=== PATIENT | female | born 1940 | race Caucasian/White ===

== ENCOUNTER 2017-12-16 05:47 | Inpatient (IN) ==
[2017-12-06 15:04] LABS: Basophils # 0.1 10*3/uL (0.0-0.2); Basophils % 0.7 % (0.0-0.8); Eosinophils # 0.3 10*3/uL (0.0-0.87); Eosinophils % 3.4 % (0.00-10.9); Hematocrit 36.7 VOL% (35.7-47.0); Hemoglobin 12.4 GM/DL (12.0-16.0); Immature Granulocytes % 0.7 %; Immature Granulocytes Absolute 0.05 #; Lymphocytes # 1.8 10*3/uL (1.4-4.0); Lymphocytes % 23.7 % (21.3-54.2); Mean Corpuscular HGB Conc 33.8 GM/DL (32-36); Mean Corpuscular Hemoglobin 34 PG (27-34); Mean Corpuscular Volume 100.3 FL (87-102); Mean Platelet Volume 9.8 FL (9.6-12.0); Monocytes # 0.7 10*3/uL (0.11-0.8); Monocytes % 9.2 % (1.7-12.7); Neutrophils # 4.8 10*3/uL (1.4-7.4); Neutrophils % 62.3 % (38.7-73.9); Platelet Count 218 T/CUMM (130-400); Red Blood Count 3.66 MC/CUMM (3.8-5.5); Red Cell Distribution Width 13.9 % (9.3-17.3); White Blood Count 7.7 T/CUMM (4-12)
[2017-12-06 15:23] LABS: PT Patient Result 10.3 SECS; Partial Thromboplastin Time 24.7 SECS (0-40)
[2017-12-06 15:32] LABS: Apearance,Urine CLEAR (Clear); Bilirubin,Urine Negative (Negative); Blood, Urine Negative (Negative); Glucose,Urine (UA) Negative (Negative); Ketones,Urine Negative (Negative); Nitrite,Urine Negative (Negative); Protein,Urine Negative; RBC,Urine 1 /HPF (0-4); Squamous Epithelial Cell,Urine Occasional /HPF (0-10); Urine Color Yellow (Yellow); Urine Specific Gravity 1.004 (1.001-1.035); Urine Urobilinogen < 2.0 EU/DL (0.2-1.0)
[2017-12-06 15:45] LABS: Albumin 3.9 G/DL (3.4-5.0); Bilirubin,Total 0.7 MG/DL (0.2-1.0); Calcium 9.5 MG/DL (8.5-10.1); Osmolality,Calculated 278.7 MOS/KG (273-304); Potassium 5.1 MMOL/L (3.5-5.1); Total Protein 7.2 G/DL (6.4-8.3)
[2017-12-16] MEDS ORDERED: ceFAZolin 1,000 MG VIAL ONE (05:54)
[2017-12-16] MEDS ORDERED: VANCOMYCIN 1,000 MG VIAL ONE (05:54)
[2017-12-16] MEDS ORDERED: DIAZEPAM 5 MG TABLET PO ONE (06:30)
[2017-12-16] MEDS ORDERED: SCOPOLAMINE 1.5 MG PATCH TRANSDERM ONE ×2 (06:30→07:39)
[2017-12-16] MEDS ORDERED: VANCOMYCIN INJ 1,000 MG in SODIUM CHLORIDE 0.9% 250 ML IV ONE (06:30)
[2017-12-16] MEDS ORDERED: FAMOTIDINE 20 MG TABLET PO ONE (06:30)
[2017-12-16] MEDS ORDERED: LACTATED RINGERS 1,000 ML IV SCH (07:30)
[2017-12-16] MEDS ORDERED: FAMOTIDINE 20 MG TABLET ONE (07:39)
[2017-12-16] MEDS ORDERED: DIAZEPAM 5 MG TABLET ONE (07:39)
[2017-12-16] MEDS ORDERED: BACITRACIN OINT 0.9 GM PACK TOP ONE (10:31)
[2017-12-16] MEDS ORDERED: BUPIVACAINE SPINAL 0.75% 2 ML AMP SPINAL ONE (10:38)
[2017-12-16] MEDS ORDERED: ONDANSETRON 4 MG/2 ML VIAL IV PRN ×2 (11:29→13:37)
[2017-12-16] MEDS ORDERED: diphenhydrAMINE CAP 25 MG CAPSULE PO PRN (11:29)
[2017-12-16] MEDS ORDERED: MORPHINE 4 MG/1 ML VIAL IV PRN ×2 (11:29)
[2017-12-16] MEDS ORDERED: oxyCODONE IR 5 MG TABLET PO PRN ×2 (11:29)
[2017-12-16] MEDS ORDERED: ZALEPLON 5 MG CAPSULE PO PRN (11:29)
[2017-12-16] MEDS ORDERED: TRANEXAMIC ACID 1,000 MG/10 ML VIAL IV ONE (11:49)
[2017-12-16 13:22] LABS: Apearance,Urine CLEAR (Clear); Bilirubin,Urine Negative (Negative); Blood, Urine Small mg/dL (Negative); Glucose,Urine (UA) Negative (Negative); Ketones,Urine Negative (Negative); Nitrite,Urine Negative (Negative); Protein,Urine Negative; RBC,Urine 1 /HPF (0-4); Urine Color Straw (Yellow); Urine Specific Gravity 1.009 (1.001-1.035); Urine Urobilinogen < 2.0 EU/DL (0.2-1.0); WBC,Urine <1 /HPF (0-6)
[2017-12-16] MEDS ORDERED: ONDANSETRON 4 MG/2 ML VIAL ONE (13:22)
[2017-12-16] MEDS ORDERED: HYDROmorphone 2 MG/1 ML VIAL ONE (13:22)
[2017-12-16] MEDS: HYDROmorphone 2 MG/1 ML VIAL IV PRN ×2 (13:22→13:30)
[2017-12-16] MEDS ORDERED: PROPOFOL 200 MG/20 ML VIAL IV ONE (13:27)
[2017-12-16] MEDS ORDERED: ACETAMINOPHEN 1,000 MG/100 ML VIAL IV ONE (13:28)
[2017-12-16] MEDS ORDERED: fentaNYL 100 MCG/2 ML VIAL ONE (13:28)
[2017-12-16] MEDS ORDERED: SODIUM CHLORIDE 0.9% 250 ML IV ONE (13:28)
[2017-12-16] MEDS: KETOROLAC 15 MG/1 ML VIAL IV SCH ×3 (16:19→23:45)
[2017-12-16] MEDS: ceFAZolin 2,000 MG in PREMIX 1 EACH IV SCH ×2 (18:27→23:49)
[2017-12-16] MEDS: ACETAMINOPHEN 500 MG TABLET PO SCH ×2 (18:27→21:32)
[2017-12-16] MEDS ORDERED: amLODIPine 5 MG TABLET PO SCH (21:00)
[2017-12-16] MEDS: ALLOPURINOL 300 MG TABLET PO SCH (21:32)
[2017-12-16] MEDS: ATENOLOL 25 MG TABLET PO SCH (21:32)
[2017-12-16] MEDS: MAGNESIUM OXIDE 400 MG TABLET PO SCH (21:32)
[2017-12-16] MEDS: DOCUSATE SODIUM 100 MG CAPSULE PO SCH (21:32)
[2017-12-16] MEDS: LISINOPRIL 10 MG TABLET PO SCH (21:32)
[2017-12-17] MEDS: ACETAMINOPHEN 500 MG TABLET PO SCH ×2 (05:00→16:38)
[2017-12-17] MEDS: KETOROLAC 15 MG/1 ML VIAL IV SCH (05:01)
[2017-12-17] MEDS: FONDAPARINUX 2.5 MG/0.5 ML SYRINGE SUBCUT SCH (05:04)
[2017-12-17 06:14] LABS: Basophils % 0.5 % (0.0-0.8); Eosinophils # 0.2 10*3/uL (0.0-0.87); Eosinophils % 2.1 % (0.00-10.9); Hematocrit 29.5 VOL% (35.7-47.0); Hemoglobin 9.3 GM/DL (12.0-16.0); Immature Granulocytes % 0.8 %; Immature Granulocytes Absolute 0.06 #; Lymphocytes # 1.2 10*3/uL (1.4-4.0); Lymphocytes % 16.4 % (21.3-54.2); Mean Corpuscular HGB Conc 31.5 GM/DL (32-36); Mean Corpuscular Hemoglobin 33 PG (27-34); Mean Corpuscular Volume 103.9 FL (87-102); Mean Platelet Volume 10.4 FL (9.6-12.0); Monocytes # 0.7 10*3/uL (0.11-0.8); Monocytes % 9.2 % (1.7-12.7); Neutrophils # 5.2 10*3/uL (1.4-7.4); Platelet Count 170 T/CUMM (130-400); Red Blood Count 2.84 MC/CUMM (3.8-5.5); Red Cell Distribution Width 14.2 % (9.3-17.3); White Blood Count 7.3 T/CUMM (4-12)
[2017-12-17 06:42] LABS: Calcium 8.5 MG/DL (8.5-10.1); Osmolality,Calculated 279.4 MOS/KG (273-304); Potassium 4.4 MMOL/L (3.5-5.1)
[2017-12-17 07:00] LABS: Risk Ratio 3.02
[2017-12-17] MEDS ORDERED: PRESERVISION LUTEIN PO SCH (09:00)
[2017-12-17] MEDS: MULTIVITAMIN (CENTRUM) TABLET PO SCH (09:51)
[2017-12-17] MEDS: RALOXIFENE 60 MG TABLET PO SCH (09:51)
[2017-12-17] MEDS: COLCHICINE 0.6 MG TABLET PO SCH (09:51)
[2017-12-17] MEDS: SIMVASTATIN 40 MG TABLET PO SCH (09:51)
[2017-12-17] MEDS: ATENOLOL 25 MG TABLET PO SCH ×2 (09:51→21:20)
[2017-12-17] MEDS: CHOLECALCIFEROL 1,000 UNIT TABLET PO SCH (09:51)
[2017-12-17] MEDS: DOCUSATE SODIUM 100 MG CAPSULE PO SCH ×2 (09:51→21:20)
[2017-12-17] MEDS: LISINOPRIL 10 MG TABLET PO SCH ×2 (09:51→21:20)
[2017-12-17] MEDS: hydroCHLOROthiazide 12.5 MG CAPSULE PO SCH (09:51)
[2017-12-17] MEDS: LACTATED RINGERS 1,000 ML IV SCH (12:11)
[2017-12-17] MEDS: CELECOXIB 200 MG CAPSULE PO SCH (16:58)
[2017-12-17] MEDS: amLODIPine 10 MG TABLET PO SCH (21:20)
[2017-12-17] MEDS: ALLOPURINOL 300 MG TABLET PO SCH (21:20)
[2017-12-17] MEDS: MAGNESIUM OXIDE 400 MG TABLET PO SCH (21:20)
[2017-12-18] MEDS: FONDAPARINUX 2.5 MG/0.5 ML SYRINGE SUBCUT SCH (05:09)
[2017-12-18 06:10] LABS: Basophils % 0.3 % (0.0-0.8); Eosinophils # 0.2 10*3/uL (0.0-0.87); Eosinophils % 2.1 % (0.00-10.9); Hematocrit 27.1 VOL% (35.7-47.0); Hemoglobin 8.9 GM/DL (12.0-16.0); Immature Granulocytes % 0.8 %; Immature Granulocytes Absolute 0.06 #; Lymphocytes # 1.4 10*3/uL (1.4-4.0); Lymphocytes % 17.3 % (21.3-54.2); Mean Corpuscular HGB Conc 32.8 GM/DL (32-36); Mean Corpuscular Hemoglobin 34 PG (27-34); Mean Corpuscular Volume 104.2 FL (87-102); Mean Platelet Volume 10.7 FL (9.6-12.0); Monocytes # 0.9 10*3/uL (0.11-0.8); Monocytes % 11.1 % (1.7-12.7); Neutrophils # 5.5 10*3/uL (1.4-7.4); Neutrophils % 68.4 % (38.7-73.9); Platelet Count 167 T/CUMM (130-400)
[2017-12-18 06:35] LABS: Calcium 8.2 MG/DL (8.5-10.1); Osmolality,Calculated 280.5 MOS/KG (273-304); Potassium 4.1 MMOL/L (3.5-5.1)
[2017-12-18] MEDS ORDERED: BENZOCAINE/MENTHOL LOZENGE 18/BOX PO PRN (10:28)
[2017-12-18] MEDS: CHOLECALCIFEROL 1,000 UNIT TABLET PO SCH (10:30)
[2017-12-18] MEDS: hydroCHLOROthiazide 12.5 MG CAPSULE PO SCH (10:31)
[2017-12-18] MEDS: COLCHICINE 0.6 MG TABLET PO SCH (10:31)
[2017-12-18] MEDS: CELECOXIB 200 MG CAPSULE PO SCH (10:31)
[2017-12-18] MEDS: RALOXIFENE 60 MG TABLET PO SCH (10:31)
[2017-12-18] MEDS: ATENOLOL 25 MG TABLET PO SCH ×2 (10:32→20:41)
[2017-12-18] MEDS: MULTIVITAMIN (CENTRUM) TABLET PO SCH (10:32)
[2017-12-18] MEDS: LISINOPRIL 10 MG TABLET PO SCH ×2 (10:32→20:41)
[2017-12-18] MEDS: DOCUSATE SODIUM 100 MG CAPSULE PO SCH ×2 (10:33→20:34)
[2017-12-18] MEDS: SIMVASTATIN 40 MG TABLET PO SCH (10:33)
[2017-12-18] MEDS: MAGNESIUM HYDROXIDE SUSP 30 ML UDCUP PO PRN ×2 (10:33→15:33)
[2017-12-18] MEDS: MAGNESIUM OXIDE 400 MG TABLET PO SCH (20:34)
[2017-12-18] MEDS: amLODIPine 10 MG TABLET PO SCH (20:41)
[2017-12-18] MEDS: ALLOPURINOL 300 MG TABLET PO SCH (20:41)
[2017-12-19] MEDS: FONDAPARINUX 2.5 MG/0.5 ML SYRINGE SUBCUT SCH (05:47)
[2017-12-19 06:38] LABS: Basophils % 0.3 % (0.0-0.8); Eosinophils # 0.2 10*3/uL (0.0-0.87); Hematocrit 25.3 VOL% (35.7-47.0); Hemoglobin 8.2 GM/DL (12.0-16.0); Immature Granulocytes % 0.9 %; Immature Granulocytes Absolute 0.06 #; Lymphocytes # 1.2 10*3/uL (1.4-4.0); Mean Corpuscular HGB Conc 32.4 GM/DL (32-36); Mean Corpuscular Hemoglobin 34 PG (27-34); Mean Corpuscular Volume 104.5 FL (87-102); Mean Platelet Volume 10.4 FL (9.6-12.0); Monocytes # 0.8 10*3/uL (0.11-0.8); Monocytes % 11.9 % (1.7-12.7); Neutrophils # 4.2 10*3/uL (1.4-7.4); Neutrophils % 64.9 % (38.7-73.9); Platelet Count 151 T/CUMM (130-400); Red Blood Count 2.42 MC/CUMM (3.8-5.5); Red Cell Distribution Width 13.9 % (9.3-17.3); White Blood Count 6.4 T/CUMM (4-12)
[2017-12-19 06:58] LABS: Calcium 8.3 MG/DL (8.5-10.1); Osmolality,Calculated 284.3 MOS/KG (273-304); Potassium 4.1 MMOL/L (3.5-5.1)
[2017-12-19] MEDS: SIMVASTATIN 40 MG TABLET PO SCH (09:48)
[2017-12-19] MEDS: LISINOPRIL 10 MG TABLET PO SCH ×2 (09:48→21:25)
[2017-12-19] MEDS: ATENOLOL 25 MG TABLET PO SCH ×2 (09:50→21:25)
[2017-12-19] MEDS: DOCUSATE SODIUM 100 MG CAPSULE PO SCH ×2 (09:51→21:26)
[2017-12-19] MEDS: RALOXIFENE 60 MG TABLET PO SCH (09:51)
[2017-12-19] MEDS: COLCHICINE 0.6 MG TABLET PO SCH (09:52)
[2017-12-19] MEDS: MULTIVITAMIN (CENTRUM) TABLET PO SCH (09:52)
[2017-12-19] MEDS: CELECOXIB 200 MG CAPSULE PO SCH (09:52)
[2017-12-19] MEDS: CHOLECALCIFEROL 1,000 UNIT TABLET PO SCH (09:52)
[2017-12-19] MEDS: hydroCHLOROthiazide 12.5 MG CAPSULE PO SCH (09:52)
[2017-12-19] MEDS: MULTIVITAMIN (OCUVITE) TABLET PO SCH (09:53)
[2017-12-19] MEDS: ALLOPURINOL 300 MG TABLET PO SCH (21:26)
[2017-12-19] MEDS: amLODIPine 10 MG TABLET PO SCH (21:26)
[2017-12-19] MEDS: MAGNESIUM OXIDE 400 MG TABLET PO SCH (21:26)
[2017-12-20] MEDS: FONDAPARINUX 2.5 MG/0.5 ML SYRINGE SUBCUT SCH (05:50)
[2017-12-20 06:02] LABS: Basophils % 0.4 % (0.0-0.8); Eosinophils # 0.2 10*3/uL (0.0-0.87); Eosinophils % 2.6 % (0.00-10.9); Hematocrit 25.7 VOL% (35.7-47.0); Hemoglobin 8.3 GM/DL (12.0-16.0); Immature Granulocytes Absolute 0.07 #; Lymphocytes % 13.8 % (21.3-54.2); Mean Corpuscular HGB Conc 32.3 GM/DL (32-36); Mean Corpuscular Hemoglobin 34 PG (27-34); Mean Corpuscular Volume 103.6 FL (87-102); Mean Platelet Volume 10.3 FL (9.6-12.0); Monocytes # 0.9 10*3/uL (0.11-0.8); Neutrophils # 4.8 10*3/uL (1.4-7.4); Neutrophils % 69.2 % (38.7-73.9); Platelet Count 189 T/CUMM (130-400); Red Blood Count 2.48 MC/CUMM (3.8-5.5); Red Cell Distribution Width 13.8 % (9.3-17.3); White Blood Count 6.9 T/CUMM (4-12)
[2017-12-20 06:16] LABS: Calcium 8.1 MG/DL (8.5-10.1); Osmolality,Calculated 278.5 MOS/KG (273-304); Potassium 4.2 MMOL/L (3.5-5.1)
[2017-12-20 07:51] VITALS: BP 150/70
[2017-12-20] MEDS: ATENOLOL 25 MG TABLET PO SCH (08:35)
[2017-12-20] MEDS: COLCHICINE 0.6 MG TABLET PO SCH (08:35)
[2017-12-20] MEDS: RALOXIFENE 60 MG TABLET PO SCH (08:35)
[2017-12-20] MEDS: hydroCHLOROthiazide 12.5 MG CAPSULE PO SCH (08:35)
[2017-12-20] MEDS: MULTIVITAMIN (CENTRUM) TABLET PO SCH (08:35)
[2017-12-20] MEDS: MULTIVITAMIN (OCUVITE) TABLET PO SCH (08:35)
[2017-12-20] MEDS: CHOLECALCIFEROL 1,000 UNIT TABLET PO SCH (08:35)
[2017-12-20] MEDS: SIMVASTATIN 40 MG TABLET PO SCH (08:35)
[2017-12-20] MEDS: CELECOXIB 200 MG CAPSULE PO SCH (08:35)
[2017-12-20] MEDS: LISINOPRIL 10 MG TABLET PO SCH (08:35)
[2017-12-20] MEDS: DOCUSATE SODIUM 100 MG CAPSULE PO SCH (08:35)
[2017-12-20] MEDS ORDERED: BISACODYL 10 MG SUPP RECTAL ONE (08:50)
== END 2017-12-20 11:10 | disposition home health service (06) | DRG 470 ==
LOC: N.OR 05:47 → N.SDSINP 05:48 → N.3E 11:29
PROVIDERS: ADMIT Orthopaedic Surgery; ATTEND Orthopaedic Surgery

== ENCOUNTER 2020-06-04 11:08 | Observation (INO) ==
[2020-06-04] MEDS ORDERED: ASPIRIN CHEW 81 MG TABLET PO STA (11:36)
[2020-06-04] MEDS ORDERED: NITROGLYCERIN SL 0.4 MG TABLET SL PRN (11:36)
[2020-06-04 11:53] LABS: Basophils # 0.1 10*3/uL (0.0-0.2); Basophils % 0.5 % (0.0-0.8); Eosinophils # 0.1 10*3/uL (0.0-0.87); Eosinophils % 0.5 % (0.00-10.9); Hematocrit 35.2 VOL% (35.7-47.0); Hemoglobin 11.8 GM/DL (12.0-16.0); Immature Granulocytes % 0.6 %; Immature Granulocytes Absolute 0.08 #; Lymphocytes # 0.9 10*3/uL (1.4-4.0); Lymphocytes % 6.7 % (21.3-54.2); Mean Corpuscular HGB Conc 33.5 GM/DL (32-36); Mean Corpuscular Volume 100.3 FL (87-102); Mean Platelet Volume 9.4 FL (9.6-12.0); Monocytes % 9.1 % (1.7-12.7); Neutrophils % 82.6 % (38.7-73.9); Platelet Count 203 T/CUMM (130-400); Red Blood Count 3.51 MC/CUMM (3.8-5.5)
[2020-06-04 12:08] LABS: PT Patient Result 10.5 SECS (9.8-11.9); Partial Thromboplastin Time 26.8 SECS (23.9-33.8)
[2020-06-04 12:14] LABS: Albumin 3.7 G/DL (3.4-5.0); Calcium 9.1 MG/DL (8.5-10.1); Total Protein 6.8 G/DL (6.4-8.3)
[2020-06-04] MEDS ORDERED: ACETAMINOPHEN 325 MG TABLET PO PRN (14:09)
[2020-06-04] MEDS ORDERED: GLUCAGON 1 MG VIAL IM PRN (14:09)
[2020-06-04] MEDS ORDERED: DEXTROSE 50% 25 GM/50 ML VIAL IV PRN (14:09)
[2020-06-04] MEDS ORDERED: ONDANSETRON 4 MG/2 ML VIAL IV PRN (14:09)
[2020-06-04] MEDS ORDERED: SODIUM CHLORIDE 0.9% 1,000 ML IV SCH (14:30)
[2020-06-04 14:44] LABS: Risk Ratio 2.57; Thyroid Stimulating Hormone 2.07 uIU/ml (0.358-3.74); VLDL CHOLESTEROL 23.8 MG/DL
[2020-06-04] MEDS ORDERED: INFLUENZA VIRUS VACCINE 0.5 ML SYRINGE IM ONE (15:34)
[2020-06-04] MEDS: ENOXAPARIN 40 MG/0.4 ML SYRINGE SUBCUT SCH (16:13)
[2020-06-04] MEDS: hydrALAZINE 20 MG/1 ML VIAL IV PRN (16:13)
[2020-06-04 18:14] LABS: Bilirubin,Urine Negative (Negative); Blood, Urine Moderate mg/dL (Negative); Glucose,Urine (UA) Negative (Negative); Ketones,Urine Negative (Negative); Nitrite,Urine Negative (Negative); Protein,Urine 100 MG/DL; RBC,Urine 8 /HPF (0-4); Squamous Epithelial Cell,Urine Occasional /HPF (0-10); Urine Appearance CLEAR (Clear); Urine Color Straw (Yellow); Urine Specific Gravity 1.005 (1.001-1.035); Urine Urobilinogen < 2.0 EU/DL (0.2-1.0); WBC,Urine <1 /HPF (0-6)
[2020-06-04] MEDS: atenoloL 25 MG TABLET PO SCH (21:06)
[2020-06-04] MEDS: MAGNESIUM GLUCONATE 500 MG TABLET PO SCH (21:06)
[2020-06-04] MEDS: allopurinoL 300 MG TABLET PO SCH (21:06)
[2020-06-04] MEDS: amLODIPine 5 MG TABLET PO SCH (21:07)
[2020-06-05 06:08] LABS: Basophils % 0.3 % (0.0-0.8); Eosinophils # 0.2 10*3/uL (0.0-0.87); Eosinophils % 2.1 % (0.00-10.9); Hematocrit 29.9 VOL% (35.7-47.0); Hemoglobin 10.1 GM/DL (12.0-16.0); Immature Granulocytes % 0.7 %; Immature Granulocytes Absolute 0.05 #; Lymphocytes # 1.2 10*3/uL (1.4-4.0); Lymphocytes % 17.3 % (21.3-54.2); Mean Corpuscular HGB Conc 33.8 GM/DL (32-36); Mean Platelet Volume 10.1 FL (9.6-12.0); Monocytes % 12.6 % (1.7-12.7); Platelet Count 164 T/CUMM (130-400); Red Blood Count 2.96 MC/CUMM (3.8-5.5); Red Cell Distribution Width 14.1 % (9.3-17.3)
[2020-06-05 06:30] LABS: Calcium 8.9 MG/DL (8.5-10.1); Osmolality,Calculated 285.4 MOS/KG (273-304)
[2020-06-05] MEDS ORDERED: FUROSEMIDE 20 MG/2 ML VIAL IV ONE (07:54)
[2020-06-05] MEDS: SIMVASTATIN 40 MG TABLET PO SCH (09:10)
[2020-06-05] MEDS: PANTOPRAZOLE 40 MG TABLET PO SCH (09:10)
[2020-06-05] MEDS: RALOXIFENE 60 MG TABLET PO SCH (09:10)
[2020-06-05] MEDS: DOCUSATE SODIUM 100 MG CAPSULE PO PRN ×2 (09:10→21:08)
[2020-06-05] MEDS: CHOLECALCIFEROL 1,000 UNIT TABLET PO SCH (09:10)
[2020-06-05] MEDS: atenoloL 25 MG TABLET PO SCH ×2 (09:10→20:48)
[2020-06-05] MEDS: MULTIVITAMIN (CENTRUM) TABLET PO SCH (09:10)
[2020-06-05] MEDS: MULTIVITAMIN (OCUVITE) TABLET PO SCH (09:10)
[2020-06-05] MEDS: ASPIRIN EC 81 MG TABLET PO SCH (09:10)
[2020-06-05] MEDS: COLCHICINE 0.6 MG CAPSULE PO SCH (09:10)
[2020-06-05] MEDS: MELOXICAM 7.5 MG TABLET PO SCH (09:10)
[2020-06-05] MEDS ORDERED: SODIUM CHLORIDE 0.45% 1,000 ML IV SCH (09:30)
[2020-06-05] MEDS: hydrALAZINE 20 MG/1 ML VIAL IV PRN (12:36)
[2020-06-05] MEDS ORDERED: amLODIPine 5 MG TABLET PO ONE (15:29)
[2020-06-05] MEDS: ENOXAPARIN 40 MG/0.4 ML SYRINGE SUBCUT SCH (16:26)
[2020-06-05] MEDS: allopurinoL 300 MG TABLET PO SCH (20:48)
[2020-06-05] MEDS: amLODIPine 5 MG TABLET PO SCH (20:48)
[2020-06-05] MEDS: MAGNESIUM GLUCONATE 500 MG TABLET PO SCH (20:48)
[2020-06-06 06:08] LABS: Basophils % 0.6 % (0.0-0.8); Eosinophils # 0.3 10*3/uL (0.0-0.87); Eosinophils % 4.5 % (0.00-10.9); Hematocrit 31.7 VOL% (35.7-47.0); Hemoglobin 10.3 GM/DL (12.0-16.0); Immature Granulocytes % 0.4 %; Immature Granulocytes Absolute 0.03 #; Lymphocytes # 1.7 10*3/uL (1.4-4.0); Lymphocytes % 25.4 % (21.3-54.2); Mean Corpuscular HGB Conc 32.5 GM/DL (32-36); Mean Corpuscular Volume 103.3 FL (87-102); Mean Platelet Volume 10.1 FL (9.6-12.0); Monocytes % 11.4 % (1.7-12.7); Neutrophils % 57.7 % (38.7-73.9); Platelet Count 188 T/CUMM (130-400); Red Blood Count 3.07 MC/CUMM (3.8-5.5); Red Cell Distribution Width 14.2 % (9.3-17.3); White Blood Count 6.7 T/CUMM (4-12)
[2020-06-06 06:25] LABS: Osmolality,Calculated 289.1 MOS/KG (273-304)
[2020-06-06 06:34] LABS: Atypical Lymphocytes Few; Eosinophils 4 % (0-10); Hypochromasia 1+; Lymphocytes 23 % (20-55); Segmented Neutrophils 66 % (50-85); Total Cells Counted 100
[2020-06-06 06:35] LABS: Macrocytosis Slight; Platelet Estimate Adequate
[2020-06-06] MEDS: PANTOPRAZOLE 40 MG TABLET PO SCH (08:47)
[2020-06-06] MEDS: atenoloL 25 MG TABLET PO SCH (08:47)
[2020-06-06] MEDS: SIMVASTATIN 40 MG TABLET PO SCH (08:47)
[2020-06-06] MEDS: MULTIVITAMIN (CENTRUM) TABLET PO SCH (08:48)
[2020-06-06] MEDS: MELOXICAM 7.5 MG TABLET PO SCH (08:48)
[2020-06-06] MEDS: ASPIRIN EC 81 MG TABLET PO SCH (08:49)
[2020-06-06] MEDS: COLCHICINE 0.6 MG CAPSULE PO SCH (08:49)
[2020-06-06] MEDS: MULTIVITAMIN (OCUVITE) TABLET PO SCH (08:49)
[2020-06-06] MEDS: RALOXIFENE 60 MG TABLET PO SCH (08:50)
[2020-06-06] MEDS: CHOLECALCIFEROL 1,000 UNIT TABLET PO SCH (08:50)
[2020-06-06] MEDS: ENOXAPARIN 40 MG/0.4 ML SYRINGE SUBCUT SCH (15:18)
[2020-06-06 17:44] VITALS: BP 194/93
== END 2020-06-06 17:09 | disposition home or self-care (01) ==
LOC: N.ED 11:08 → N.EDINP 11:08 → SUATTDRO 14:09 → N.TELES 15:00 → N.EDINP 15:01
PROVIDERS: ADMIT Internal Medicine; ATTEND Internal Medicine